=== PATIENT | male | born 1990 | race African-American/Black ===

== ENCOUNTER 2017-09-30 14:44 | Emergency (ER) | payer OTHER ==
[~2017-09-30] VITALS: Ht 185.4 cm; Wt 86.2 kg
[2017-09-30] MEDS ORDERED: PENICILLIN VK500 M1 PO (15:21)
[2017-09-30] MEDS ORDERED: PREDNISONE 20 M20 MG PO ×2 (15:21→15:44)
[2017-09-30] MEDS ORDERED: CEPASTAT CHERR18 TA2 PO (15:23)
[2017-09-30] MEDS ORDERED: ULTRAM 50MG TAB50 MG PO (15:30)
[2017-09-30 15:55] VITALS: BP 127/82
== END 2017-09-30 15:56 | disposition home or self-care (01) ==
LOC: ER 14:44
DX: J02.0 Streptococcal pharyngitis (principal)